=== PATIENT | male | born 1950 ===

== ENCOUNTER 2019-11-13 16:01 | Observation (INO) ==
[2019-11-13] MEDS ORDERED: 0.9 % Sodium Chloride 1,000 ML IVC ONE (16:15)
[2019-11-13 16:22] LABS: Basophils # 0.1 K/mcL (0.0-0.2); Basophils % 0.7 %; Eosinophils # 0.1 K/mcL (0.0-0.6); Hematocrit 44.3 % (37.5-50.1); Hemoglobin 14.9 g/dL (12.9-16.9); Immature Granulocytes % 0.2 % (0-4); Lymphocytes # 1.6 K/mcL (0.6-4.6); Lymphocytes % 19.6 %; Mean Corpuscular HGB Conc 33.6 g/dL (31.6-35.5); Mean Corpuscular Hemoglobin 30.5 pg (28.0-33.3); Mean Corpuscular Volume 90.8 fL (83.0-100.0); Mean Platelet Volume 9.4 fL (9.4-12.4); Monocytes # 0.8 K/mcL (0.0-1.3); Monocytes % 10.3 %; Neutrophils # 5.5 K/mcL (1.6-8.9); Platelet Count 304 K/mcL (140-400); Red Blood Count 4.88 M/mcL (4.19-5.50); Red Cell Distribution Width 12.9 % (11.5-14.5); Segmented Neutrophils % 68.2 %; White Blood Count 8.1 K/mcL (4.3-11.1)
[2019-11-13 16:44] LABS: BUN/Creatinine Ratio 15 (6-26); Blood Urea Nitrogen 13 mg/dL (8-23); Calcium 9.6 mg/dL (8.6-10.3); Carbon Dioxide 23 mEq/L (23-29); Chloride 104 mEq/L (98-107); Glucose 136 mg/dL (70-105); Osmolality,Calculated 280 (280-300); Potassium 3.6 mEq/L (3.5-5.1); Sodium 134 mEq/L (136-145); eGFR For African Americans > 60 (> 60); eGFR For Non-African Americans > 60 (> 60)
[2019-11-13 16:45] LABS: Troponin I < 0.03 ng/mL (< 0.04)
[2019-11-13] MEDS: DilTIAZem 50 MG/50 ML IV.SOLN IVC SCH ×3 (16:50→23:59)
[2019-11-13 17:08] LABS: Prothrombin Time 11.3 Seconds (9.4-12.1)
[2019-11-13 17:10] LABS: Activated Partial Thrombo Time 33.8 Seconds (26.0-36.0)
[2019-11-13] MEDS ORDERED: Naloxone 0.4 MG/ML INJ IVP PRN (17:41)
[2019-11-13] MEDS ORDERED: Perflutren Lipid Microsphere 1.3 ML in 0.9 % Sodium Chloride 8.7 ML IVP PRN (17:44)
[2019-11-13 18:22] LABS: Bilirubin,Urine Negative (Negative); Blood,Urine Small (Negative); Clarity,Urine Clear (Clear); Color,Urine Light-Yellow (Yellow); Glucose,Urine (UA) Normal (Normal); Ketones,Urine Negative (Negative); Leukocyte Esterase,Urine Negative (Negative); Mucus,Urine Few per lpf (None-Few); Nitrite,Urine Negative (Negative); Protein,Urine Negative (Neg-Trace); Specific Gravity,Urine 1.011 (1.010-1.025); Squamous Epithelial Cell,Urine Few per hpf (None-Few); Urobilinogen,Urine Normal (Normal); WBC,Urine 0-3 per hpf (0-3)
[2019-11-13 19:35] LABS: Thyroid Stimulating Hormone 0.904 mcIU/mL (0.340-5.600)
[2019-11-13] MEDS: Aspirin Enteric Coated 81 MG Tablet PO SCH (19:48)
[2019-11-14 05:32] LABS: BUN/Creatinine Ratio 14 (6-26); Blood Urea Nitrogen 13 mg/dL (8-23); Calcium 9.4 mg/dL (8.6-10.3); Carbon Dioxide 28 mEq/L (23-29); Chloride 109 mEq/L (98-107); Chol/HDL Ratio 4.5 (0-4.9); Cholesterol 176 mg/dL (< 200); Glucose 116 mg/dL (70-105); HDL Cholesterol 39 mg/dL (40-59); LDL Cholesterol,Calculated 112 mg/dL (< 100); Magnesium 2.1 mg/dL (1.6-2.6); Osmolality,Calculated 295 (280-300); Potassium 4.6 mEq/L (3.5-5.1); Sodium 142 mEq/L (136-145); Triglycerides 123 mg/dL (< 150); Troponin I < 0.03 ng/mL (< 0.04); eGFR For African Americans > 60 (> 60); eGFR For Non-African Americans > 60 (> 60)
[2019-11-14] MEDS: DilTIAZem 50 MG/50 ML IV.SOLN IVC SCH (06:22)
[2019-11-14 08:54] LABS: Estimated Average Glucose 128 mg/dl; Hemoglobin A1C 6.1 %
[2019-11-14] MEDS: Aspirin Enteric Coated 81 MG Tablet PO SCH (09:33)
[2019-11-14] MEDS ORDERED: Regadenoson 0.4 MG/5 ML SYRINGE IVP ONE (10:47)
[2019-11-14] MEDS: Metoprolol XL (24 HR) Succ 50 MG TAB.ER.24H PO SCH (18:04)
[2019-11-15] MEDS ORDERED: Regadenoson 0.4 MG/5 ML SYRINGE IVP ONE (06:04)
[2019-11-15] MEDS: Aspirin Enteric Coated 81 MG Tablet PO SCH (09:00)
[2019-11-15] MEDS: Metoprolol XL (24 HR) Succ 50 MG TAB.ER.24H PO SCH (09:00)
[2019-11-15] MEDS ORDERED: *HR* Heparin 5,000 UNIT/ML VIAL IVP PRN ×2 (12:13)
[2019-11-15] MEDS ORDERED: *HR* Heparin 5,000 UNIT/ML VIAL IVP ONE (12:13)
[2019-11-15] MEDS ORDERED: Heparin 25,000 UNIT/250 ML D5W 25,000 UNIT/250 ML IV.SOLN IVC SCH (12:15)
[2019-11-15 13:02] LABS: Heparin anti-factor XA UFH < 0.04 IU/mL (0.30-0.70)
[2019-11-15 13:03] LABS: Prothrombin Time 11.6 Seconds (9.4-12.1)
[2019-11-15 13:07] LABS: Hematocrit 46.6 % (37.5-50.1); Hemoglobin 15.4 g/dL (12.9-16.9); Mean Corpuscular Hemoglobin 31.4 pg (28.0-33.3); Mean Corpuscular Volume 95.1 fL (83.0-100.0); Mean Platelet Volume 9.9 fL (9.4-12.4); Platelet Count 330 K/mcL (140-400); White Blood Count 10.3 K/mcL (4.3-11.1)
[2019-11-16 05:56] LABS: Basophils # 0.1 K/mcL (0.0-0.2); Basophils % 0.7 %; Eosinophils # 0.1 K/mcL (0.0-0.6); Eosinophils % 1.5 %; Hematocrit 42.1 % (37.5-50.1); Immature Granulocytes % 0.5 % (0-4); Lymphocytes # 1.8 K/mcL (0.6-4.6); Lymphocytes % 20.4 %; Mean Corpuscular HGB Conc 33.3 g/dL (31.6-35.5); Mean Corpuscular Hemoglobin 30.4 pg (28.0-33.3); Mean Corpuscular Volume 91.3 fL (83.0-100.0); Mean Platelet Volume 9.7 fL (9.4-12.4); Monocytes # 0.9 K/mcL (0.0-1.3); Monocytes % 9.9 %; Neutrophils # 5.8 K/mcL (1.6-8.9); Platelet Count 301 K/mcL (140-400); Red Blood Count 4.61 M/mcL (4.19-5.50); Red Cell Distribution Width 13.2 % (11.5-14.5); White Blood Count 8.6 K/mcL (4.3-11.1)
[2019-11-16 06:14] LABS: BUN/Creatinine Ratio 15 (6-26); Blood Urea Nitrogen 13 mg/dL (8-23); Carbon Dioxide 26 mEq/L (23-29); Chloride 105 mEq/L (98-107); Glucose 109 mg/dL (70-105); Osmolality,Calculated 285 (280-300); Potassium 4.1 mEq/L (3.5-5.1); Sodium 137 mEq/L (136-145); eGFR For African Americans > 60 (> 60); eGFR For Non-African Americans > 60 (> 60)
[2019-11-16 07:08] VITALS: BP 138/77
[2019-11-16] MEDS: Metoprolol XL (24 HR) Succ 50 MG TAB.ER.24H PO SCH (09:16)
[2019-11-16] MEDS: Aspirin Enteric Coated 81 MG Tablet PO SCH (09:17)
[2019-11-16] MEDS ORDERED: Heparin 1,000 UNITS/500 mL 500 ML ONE (09:34)
[2019-11-16] MEDS ORDERED: Nitroglycerin 1,000 MCG/10 ML VIAL IV ONE (09:34)
[2019-11-16] MEDS ORDERED: ISOVUE-370 200 ML INFUS..BTL ONE (09:34)
[2019-11-16] MEDS ORDERED: 0.9 % Sodium Chloride 1,000 ML ONE (09:34)
[2019-11-16] MEDS ORDERED: *HR* Heparin 10,000 UNIT/10 ML VIAL ONE (09:34)
[2019-11-16] MEDS ORDERED: *HR* Midazolam HCl 2 MG/2 ML VIAL ONE (09:49)
[2019-11-16] MEDS ORDERED: *HR* FentaNYL (PF) 100 MCG/2 ML VIAL ONE (09:49)
[2019-11-17] MEDS ORDERED: Apixaban 5 MG TABLET PO SCH (09:00)
== END 2019-11-16 16:20 | disposition home or self-care (01) ==
LOC: EMEROOARM 16:01 → 3BNU 16:01 → SUATTDRO 19:07 → 3BNU 19:38
PROVIDERS: ADMIT Internal Medicine; ATTEND Internal Medicine